=== PATIENT | male | born 1955 | race Caucasian/White ===

== ENCOUNTER 2025-02-22 10:42 | Outpatient (CLI) | payer MEDICARE, SELFPAY ==
--- NOTE | ~2025-02-22 | MR_ITS ---
MRI of the left shoulder Technique: Axial proton-density fat-sat images, coronal proton density fat-sat and T2 fat-sat images, and sagittal T1-weighted and T2 fat-sat images were acquired. Clinical History: Pain, fracture Findings: AC joint intact with minimal degenerative change. Coracoclavicular, coracoacromial, coracoh umeral ligaments are intact. Supraspinatus and infraspinatus tendons are intact without partial or full-thickness tear. Subscapula ris tendon is intact with mild tendinosis. Tendon of long head of the biceps is intact. No definite labral tear seen. There is a comminuted fracture involving the surgical neck and proximal shaft of the humerus, with mi ld displacement overall and surrounding marrow edema with fluid in the fracture defect. Inferior glenohumeral ligament is intact. No glenohumeral joint effusion. No significant degenerative change of the glenohumeral joint. No fluid distention of the subacromial/subdeltoid bursa. No muscle atrophy or edema. Impression: Acute comminuted fracture of the surgical neck and proximal shaft of the humerus, as detailed above. Reviewed, dictated and finalized at location . Impression: Acute comminuted fracture of the surgical neck and proximal shaft of the humeru s, as detailed above.
--- NOTE | ~2025-02-22 | CT_ITS ---
Procedure: CT shoulder LT wo con Ordering provider: Brandon Nicholson MD History: . Post Fracture, Left shoulder pain . Comparison: None. Technique: Thin slice axial CT of the No IV contrast was given. Sagittal and coronal reformatted imag es were also obtained and reviewed. Findings: BONES: Comminuted fracture in the proximal metaphysis of the left humerus with angulation. JOINT SPACES: Moderate narrowing suggestive of osteoarthritic changes. SOFT TISSUES: Normal. IMPRESSION: Comminuted fracture in the proximal metaphysis of the left humerus with angulation. Reviewed, dictated and finalized at location A. IMPRESSION: Comminuted fracture in the proximal metaphysis of the left humerus with angulat ion.
== END 2025-02-22 10:43 | disposition home or self-care (01) ==
LOC: MICIMG 10:44
PROVIDERS: PCP Orthopaedic Surgery; Visit Provider Orthopaedic Surgery
DX: S42.352A Displaced comminuted fracture of shaft of humerus, left arm, initial encounter for closed fracture (principal); X58.XXXA Exposure to other specified factors, initial encounter
CPT/HCPCS: 73200; 73221